=== PATIENT | male | born 1955 | race Hispanic/Latino ===

== ENCOUNTER 2021-11-20 13:59 | Emergency (ER) | payer OTHER ==
[~2021-11-20] VITALS: Ht 170.2 cm; Wt 99.3 kg
[2021-11-20] MEDS ORDERED: CYCLOBENZAPRINE HCL 10 MG TAB PO ONE (14:15)
[2021-11-20] MEDS ORDERED: HYDROCODONE/APAP 5MG-325MG TAB PO ONE (14:15)
[2021-11-20] MEDS ORDERED: ULTRAM 50MG50 MG PO (16:16)
[2021-11-20] MEDS ORDERED: METHOCARBAMOL750 MG PO (16:16)
[2021-11-20] MEDS ORDERED: KETOROLAC TROME10 MG PO (16:16)
[2021-11-20] MEDS ORDERED: FENTANYL CITRATE/PF 100MCG/2 ML INJ IJ ONE (16:30)
== END 2021-11-20 16:29 | disposition home or self-care (01) ==
LOC: ER 14:20
DX: M54.30 Sciatica, unspecified side (principal); M54.50 Low back pain, unspecified; Z98.1 Arthrodesis status
CPT/HCPCS: 72110; 99283; J3010